=== PATIENT | male | born 1995 | race Caucasian/White ===

== ENCOUNTER 2020-01-25 20:50 | Emergency (ER) | payer OTHER ==
[~2020-01-25] VITALS: Ht 180.3 cm; Wt 170.1 kg
== END 2020-01-25 22:28 | disposition home or self-care (01) ==
LOC: ER 20:50
DX: F41.9 Anxiety disorder, unspecified (principal)
CPT/HCPCS: 99282

== ENCOUNTER 2020-05-29 17:10 | Emergency (ER) | payer OTHER ==
[~2020-05-29] VITALS: Ht 180.3 cm; Wt 163.3 kg
== END 2020-05-29 18:43 | disposition home or self-care (01) ==
LOC: ER 17:10
DX: K62.89 Other specified diseases of anus and rectum (principal); K92.1 Melena
CPT/HCPCS: 99282

== ENCOUNTER 2020-08-07 17:15 | Emergency (ER) | payer OTHER ==
[~2020-08-07] VITALS: Ht 180.3 cm; Wt 181.4 kg
== END 2020-08-07 18:12 | disposition home or self-care (01) ==
LOC: ER 17:15
DX: H92.03 Otalgia, bilateral (principal)
CPT/HCPCS: 99282

== ENCOUNTER 2021-01-18 19:07 | Emergency (ER) | payer OTHER ==
[~2021-01-18] VITALS: Ht 180.3 cm; Wt 167.8 kg
[2021-01-19] MEDS ORDERED: Vistaril25 MG PO (15:35)
[2021-01-19] MEDS ORDERED: ONDA4ODT MM (15:35)
== END 2021-01-18 22:44 | disposition home or self-care (01) ==
LOC: ER 19:07
DX: F41.9 Anxiety disorder, unspecified (principal); R51.9 Headache, unspecified
CPT/HCPCS: 99283; A9270

== ENCOUNTER 2021-01-19 13:07 | Emergency (ER) | payer OTHER ==
[~2021-01-19] VITALS: Ht 180.3 cm; Wt 167.8 kg
[2021-01-19] MEDS ORDERED: Vistaril25 MG PO (15:35)
[2021-01-19] MEDS ORDERED: ONDA4ODT MM (15:35)
== END 2021-01-19 15:55 | disposition home or self-care (01) ==
LOC: ER 13:07
DX: F41.9 Anxiety disorder, unspecified (principal); F32.9 Major depressive disorder, single episode, unspecified; Z79.899 Other long term (current) drug therapy
CPT/HCPCS: 99283

== ENCOUNTER 2024-12-13 18:26 | Emergency (ER) | payer OTHER ==
[~2024-12-13] VITALS: Ht 177.8 cm; Wt 208.7 kg
[~2024-12-13 18:26] MED LIST: ONDA4ODT MM; Vistaril25 MG PO
[2024-12-13 18:38] VITALS: BP 170/83
[2024-12-13] MEDS ORDERED: Ofloxacin 0.3% Otic Soln 5 ML BOTHEARS ONE (20:10)
[2024-12-13] MEDS ORDERED: CIPROFLOX-DEXA7.5 ML BOTHEARS (20:13)
== END 2024-12-13 20:24 | disposition home or self-care (01) ==
LOC: ER 18:26
DX: H60.92 Unspecified otitis externa, left ear (principal)
CPT/HCPCS: 99282; A9270